=== PATIENT | male | born 1970 | race Caucasian/White ===

== ENCOUNTER 2025-01-30 17:55 | Emergency (ER) | payer MEDICAID ==
[~2025-01-30] VITALS: Ht 185.4 cm; Wt 79.8 kg
[2025-01-30 17:57] VITALS: O2SAT 98
[2025-01-30] MEDS ORDERED: HYDR-3972 PO (18:26)
[2025-01-30] MEDS ORDERED: CARI350T27 PO (18:26)
[2025-01-30] MEDS ORDERED: IBUP-1955 PO (18:26)
== END 2025-01-30 18:37 | disposition home or self-care (01) ==
LOC: ER 17:55
DX: M25.561 Pain in right knee (principal); M54.50 Low back pain, unspecified; M79.602 Pain in left arm; F17.200 Nicotine dependence, unspecified, uncomplicated; W01.0XXA Fall on same level from slipping, tripping and stumbling without subsequent striking against object, initial encounter; Y93.89 Activity, other specified; Y92.89 Other specified places as the place of occurrence of the external cause; Y99.8 Other external cause status
CPT/HCPCS: A4606; A4663

== ENCOUNTER 2025-05-05 18:44 | Emergency (ER) | payer MEDICAID, OTHER ==
[~2025-05-05] VITALS: Ht 182.9 cm; Wt 77.1 kg
[~2025-05-05 18:44] MED LIST: CARI350T27 PO; HYDR-3972 PO; IBUP-1955 PO
[2025-05-05 18:47] VITALS: O2SAT 97
== END 2025-05-05 23:30 | disposition left against medical advice (07) ==
LOC: ER 18:44
DX: M54.2 Cervicalgia (principal); M25.561 Pain in right knee; Z53.21 Procedure and treatment not carried out due to patient leaving prior to being seen by health care provider
CPT/HCPCS: A4606; A4663

== ENCOUNTER 2025-09-29 20:24 | Emergency (ER) | payer OTHER ==
[~2025-09-29] VITALS: Ht 185.4 cm; Wt 83.9 kg
[2025-09-29 20:26] VITALS: BP 150/88; O2SAT 96
== END 2025-09-29 22:24 | disposition left against medical advice (07) ==
LOC: ER 20:24
DX: M25.569 Pain in unspecified knee (principal); F17.200 Nicotine dependence, unspecified, uncomplicated; E87.5 Hyperkalemia; D64.9 Anemia, unspecified; Z53.21 Procedure and treatment not carried out due to patient leaving prior to being seen by health care provider
CPT/HCPCS: A4606; A4663

== ENCOUNTER 2025-10-05 09:39 | Emergency (ER) | payer OTHER ==
[~2025-10-05] VITALS: Ht 185.4 cm; Wt 81.6 kg
[2025-10-05 09:41] VITALS: BP 131/85; O2SAT 95
[2025-10-05] MEDS ORDERED: PENI500T PO (10:52)
== END 2025-10-05 11:10 | disposition home or self-care (01) ==
LOC: ER 09:39
DX: S43.402A Unspecified sprain of left shoulder joint, initial encounter (principal); F17.200 Nicotine dependence, unspecified, uncomplicated; Y04.0XXA Assault by unarmed brawl or fight, initial encounter; Y93.89 Activity, other specified; Y92.89 Other specified places as the place of occurrence of the external cause; Y99.9 Unspecified external cause status
CPT/HCPCS: 73020; 98960; A4606; A4663